=== PATIENT | male | born 1950 | race Caucasian/White ===

== ENCOUNTER 2022-08-06 11:02 | Emergency (ER) | payer OTHER ==
[2022-08-06 11:06] VITALS: RESP 18; BMI 29.4
[2022-08-06 12:53] LABS: BASO % 0.6 % (0-2.0); EOS % 1.7 % (0-4.5); HEMATOCRIT 47.2 % (35.4-49); HEMOGLOBIN 16.1 GM/dL (11.7-16.9); LYMPH % 25.9 % (8-40); MCH 29.8 pg (25.7-33.7); MCHC 34.1 g/dl (32.0-35.9); MEAN CELL VOLUME 87.2 fl (80-96); MEAN PLT VOLUME 8.5 fl (7.5-11.1); MONO % 9.7 % (3.8-10.2); NEUT % 62.1 % (42.8-82.8); PLATELET COUNT 149 10^3/uL (134-434); RBC 5.41 M/mm3 (4.00-5.60); RDW 14.3 % (11.9-15.9); WHITE BLOOD COUNT 6.5 K/mm3 (4.0-10.0)
[2022-08-06 12:59] LABS: INR 1.07 (0.83-1.09); PROTHROMBIN TIME (PATIENT) 12.3 SEC (9.7-13.0)
[2022-08-06] MEDS ORDERED: SODIUM CHLORIDE 0.9% 500 ML INFUS.BAG IV ONE (13:04)
[2022-08-06 13:08] LABS: CALCIUM 9.5 mg/dL (8.5-10.1)
[2022-08-06 13:09] LABS: ALBUMIN 3.9 g/dl (3.4-5.0); BLOOD UREA NITROGEN 22.6 mg/dL (7-18)
[2022-08-06 13:12] LABS: CREATININE 1.4 mg/dL (0.55-1.3)
[2022-08-06 13:14] LABS: BILIRUBIN,TOTAL 0.7 mg/dL (0.2-1); TOT PROT 6.8 g/dl (6.4-8.2)
[2022-08-06 16:46] LABS: PH,URINE 7.5 (5.0-8.0); URINE APPEARANCE CLEAR; URINE BILIRUBIN NEGATIVE (NEGATIVE); URINE COLOR YELLOW; URINE GLUCOSE (UA) 3+ (NEGATIVE); URINE KETONE NEGATIVE (NEGATIVE); URINE LEUK ESTERASE NEGATIVE (NEGATIVE); URINE NITRITE NEGATIVE (NEGATIVE); URINE PROTEIN NEGATIVE (NEGATIVE)
[2022-08-06 18:55] VITALS: BP 147/75; PULSE 71; TEMP 97.9
== END 2022-08-06 19:10 | disposition short-term general hospital (02) ==
LOC: JER 11:02
DX: R42 Dizziness and giddiness (principal); R41.82 Altered mental status, unspecified; H53.2 Diplopia
CPT/HCPCS: 0241U-QW; 36415; 70450-TC; 70496-TC; 70498-TC; 71046-TC-FY; 80053; 81003; 84484; 85025; 85610; 85730; 87077; 87086; 93005; 93010; 99284-25